=== PATIENT | female | born 1990 | race American Indian/Alaskan Native ===

== ENCOUNTER 2018-11-28 04:18 | Emergency (ER) | payer OTHER ==
--- NOTE | 2018-11-28 06:51 | Emergency Department Report ---
ED ENT HPI - General Chief complaint: Sore Throat Stated complaint: THROAT PAIN Time Seen by Provider: 11/28/18 05:59 Source: patient Mode of arrival: Ambulatory Limitations: No Limitations - History of Present Illness Initial comments: Pt is a 28 yo female who presents to the ED with c/o a sore throat that began yesterday. She has associated pain with swallowing, dry cough, and nasal congestion. The patient denies any fever, rhinorrhea, or ear pain. THe patient denies any sick contacts. She states she has been using throat spray and cough drops. She states she has seasonal allergies but has not taken anything. - Related Data Previous Rx's Medication Instructions Recorded Last Taken Type Fluticasone [Flonase] 1 spray NS QDAY #1 bottle 11/28/18 Unknown Rx Loratadine/Pseudoephedrine 1 each PO BID #30 tab.er.12h 11/28/18 Unknown Rx [Claritin-D 12 Hour Tablet] Allergies Allergy/AdvReac Type Severity Reaction Status Date / Time No Known Allergies Allergy Unverified 11/28/18 04:19 ED Dental HPI - General Chief complaint: Sore Throat Stated complaint: THROAT PAIN Time Seen by Provider: 11/28/18 05:59 Source: patient Mode of arrival: Ambulatory Limitations: No Limitations - Related Data Previous Rx's Medication Instructions Recorded Last Taken Type Fluticasone [Flonase] 1 spray NS QDAY #1 bottle 11/28/18 Unknown Rx Loratadine/Pseudoephedrine 1 each PO BID #30 tab.er.12h 11/28/18 Unknown Rx [Claritin-D 12 Hour Tablet] Allergies Allergy/AdvReac Type Severity Reaction Status Date / Time No Known Allergies Allergy Unverified 11/28/18 04:19 ED Review of Systems ROS: Stated complaint: THROAT PAIN Other details as noted in HPI Comment: All other systems reviewed and negative ED Past Medical Hx - Past Medical History Previous Medical History?: No - Surgical History Past Surgical History?: No - Social History Smoking Status: Never Smoker Substance Use Type: None - Medications Home Medications: Home Medications Medication Instructions Recorded Confirmed Last Taken Type Fluticasone [Flonase] 1 spray NS QDAY #1 bottle 11/28/18 Unknown Rx Loratadine/Pseudoephedrine 1 each PO BID #30 tab.er.12h 04/05/19 Unknown Rx [Claritin-D 12 Hour Tablet] ED Physical Exam - General Limitations: No Limitations General appearance: alert, in no apparent distress - Head Head exam: Present: atraumatic, normocephalic - ENT ENT exam: Present: other (mild posterior oropharynx erythema, no tonsillar exudates or hypertrophy, boggy, pale nasal turbinates, no purulent drainage, no sinus TTP bilaterally, uvula is midline) - Respiratory Respiratory exam: Present: normal lung sounds bilaterally. Absent: respiratory distress, wheezes, rales, rhonchi, stridor, chest wall tenderness, accessory muscle use, decreased breath sounds, prolonged expiratory - Cardiovascular Cardiovascular Exam: Present: regular rate, normal rhythm, normal heart sounds. Absent: systolic murmur, diastolic murmur, rubs, gallop - Neurological Exam Neurological exam: Present: alert, oriented X3 - Psychiatric Psychiatric exam: Present: normal affect, normal mood - Skin Skin exam: Present: warm, dry, intact ED Course Vital Signs 11/28/18 04:20 Temperature 98.0 F Pulse Rate 110 H Respiratory 20 Rate Blood Pressure 128/90 O2 Sat by Pulse 98 Oximetry ED Medical Decision Making - Medical Decision Making Pt is a 28 yo female who presents to the ED with c/o a sore throat that began yesterday. She has associated pain with swallowing, dry cough, and nasal congestion. The patient denies any fever, rhinorrhea, or ear pain. THe patient denies any sick contacts. She states she has been using throat spray and cough d rops. She states she has seasonal allergies but has not taken anything. rapid strep is negative. exam is consistent with seasonal allergies and allergic rhinitis. Will give pt claritin, flonase, cepacol, and use salt water garggles. Follow up with PCP in the next 2-3 days. Return to the emergency room for any new or worsening symptoms. - Differential Diagnosis strep, allergies, allergic rhinitis, URI Critical care attestation.: If time is entered above; I have spent that time in minutes in the direct care of this critically ill patient, excluding procedure time. ED Disposition Clinical Impression: Seasonal allergies Allergic rhinitis Qualifiers: Allergic rhinitis trigger: pollen Allergic rhinitis seasonality: seasonal Qualified Code(s): J30.1 - Allergic rhinitis due to pollen Disposition: - TO HOME OR SELFCARE Is pt being admited?: No Does the pt Need Aspirin: No Condition: Stable Instructions: Allergies (ED) Additional Instructions: Follow up with your primary care doctor in the next 2-3 days. Take all medication as prescribed. Also use warm salt water gargles. Return to the emergency room for any new or worsening symptoms. Prescriptions: Loratadine/Pseudoephedrine [Claritin-D 12 Hour Tablet] 1 each PO BID #30 tab.er.12h Fluticasone [Flonase] 1 spray NS QDAY #1 bottle Referrals: MAXIMO ONEAL MD [Primary Care Provider] - 2-3 Days Time of Disposition: 07:16 Print Language: [email or web address]
[2018-11-28 07:25] VITALS: BP 100/72
== END 2018-11-28 07:25 | disposition home or self-care (01) ==
LOC: ED 04:18
DX: J30.2 Other seasonal allergic rhinitis (principal)
CPT/HCPCS: 87116; 87430; 99282